=== PATIENT | female | born 1985 | race Caucasian/White ===

== ENCOUNTER 2019-10-12 17:09 | Emergency (ER) | payer BC ==
[~2019-10-12] VITALS: Ht 157.5 cm; Wt 84.0 kg
[2019-10-12 17:24] VITALS: BP 162/77
[2019-10-12] MEDS ORDERED: oxyCODONE/APAP 5/325 1 TAB TABLET PO ONE (17:45)
--- NOTE | 2019-10-12 17:45 | PHYS DOC ---
Past Medical History Past Medical History: Depression, Sciatica Additional Past Surgical Histo: 4 ear surgeries Smoking Status: Current Every Day Smoker Alcohol Use: Occasionally General Adult EDM: Chief Complaint: ANKLE PROBLEM HPI: HPI: Patient is a 34 year old female who presents with states she was sitting on her patio when she went to stand up the sidewalk is a little off balance and she had flip-flops on and lost her balance and fell and rolled her left ankle. She has left dorsal foot and left lateral ankle pain. She states that sharp and shooting. She states is too painful to wiggle her toes. She states she has some tingling in the foot. Patient rates her pain a 10 out of 10. Patient states she is allergic to Vicodin but can take Percocet. Review of Systems: Review of Systems: Musculoskeletal: Denies back pain. + Left foot and ankle joint pain. [] Heart Score: Risk Factors: Risk Factors: DM, Current or recent (<one month) smoker, HTN, HLP, family history of CAD, obesity. Risk Scores: Score 0 - 3: 2.5% MACE over next 6 weeks - Discharge Home Score 4 - 6: 20.3% MACE over next 6 weeks - Admit for Clinical Observation Score 7 - 10: 72.7% MACE over next 6 weeks - Early Invasive Strategies Allergies: Allergies: Allergies Coded Allergies Type Severity Reaction Last Updated Verified acetaminophen Allergy Intermediate 10/12/19 Yes hydrocodone Allergy Intermediate 10/12/19 Yes Physical Exam: PE: Constitutional: Well developed, well nourished, no acute distress, non-toxic appearance. [] HENT: Normocephalic, atraumatic, bilateral external ears normal, oropharynx moist, no oral exudates, nose normal. [] Eyes: PERRLA, EOMI, conjunctiva normal, no discharge. [] Neck: Normal range of motion, no tenderness, supple, no stridor. [] Cardiovascular:Heart rate regular rhythm, no murmur [] Lungs & Thorax: Bilateral breath sounds clear to auscultation [] Abdomen: Bowel sounds normal, soft, no tenderness, no masses, no pulsatile masses. [] Skin: Warm, dry, no erythema, no rash. [] Back: No tenderness, no CVA tenderness. [] Extremities: Left lateral ankle tenderness, no cyanosis, no clubbing, toes and left ankle ROM limited due to pain, 2+ edema. [] Neurologic: Alert and oriented X 3, normal motor function, normal sensory function, no focal deficits noted. [] Psychologic: Affect normal, judgement normal, mood normal. [] Current Patient Data: Vital Signs: Vital Signs Date Time Temp Pulse Resp B/P (MAP) Pulse Ox O2 Delivery O2 Flow Rate FiO2 10/12/19 17:24 99.1 96 16 162/77 (105) 97 Room Air 99.1 EKG: EKG: [] Radiology/Procedures: Radiology/Procedures: [] Impression: [facility] [address] [place] [address] IMAGING REPORT Signed PATIENT: MAE PETERSON ACCOUNT: [id number] : 1985 LOCATION: ER AGE: 34 SEX: F EXAM STATUS: REG ER ORD. PHYSICIAN: LORI VALLADARES APRN REASON: fall. left ankle/foot pain PROCEDURE: ANKLE LEFT 3V Exam: Left ankle 3 views. Left foot 3 views INDICATION: Fall, left ankle/foot pain TECHNIQUE: Frontal, lateral and oblique views of the left ankle and left foot. Comparisons: None FINDINGS: Ankle: Bone mineralization is normal. No acute or healed fractures. Soft tissues are unremarkable. Joint spaces are well-maintained. Left foot: Bone mineralization is normal. No acute or healed fractures. Soft tissues are unremarkable. Joint spaces are well-maintained. IMPRESSION: 1. No acute osseous abnormality of the left foot 2. No acute osseous abnormality of the left ankle Electronically signed by: Davida Guadarrama MD (10/12/2019 6:13 PM) [id number] DICTATED and SIGNED BY: DAVIDA GUADARRAMA MD DATE: 10/12/19 181 Course & Med Decision Making: Course & Med Decision Making Pertinent Labs and Imaging studies reviewed. (See chart for details) 2+ swelling to the dorsal foot. She does not have tenderness to the foot but when she tries to go her toes is very painful. She has tenderness to the lateral ankle with palpation and the ankle has 2+ swelling. There is no laxity in any joints. She has limited range of motion in the ankle due to pain. Skin is pink warm and dry. Cap refill less than 3 seconds. No deformities and no wounds are noted. No tenderness or swelling to the tib-fib. X-ray show no acute findings. Patient is placed in a stirrup and posterior splint. She is to follow-up with orthopedics. Splint assessment: Neurovascularly intact post splint replacement with good f it. Patient's extremity symptoms have stabilized well they have been evaluated in the department and are appropriate for outpatient follow-up. No evidence of compartment syndrome, neurologic injury, vascular injury, open joint, open fracture, tendon laceration, or foreign body. [] Dragon Disclaimer: Dragon Disclaimer: This electronic medical record was generated, in whole or in part, using a voice recognition dictation system. Departure Departure Impression: Primary Impression: Foot pain, left Additional Impression: Ankle pain, left Qualified Codes: M25.572 - Pain in left ankle and joints of left foot Disposition: 01 HOME, SELF-CARE Condition: STABLE Referrals: UNKNOWN PCP NAME (PCP) RAÚL RUIZ MD Patient Instructions: Ankle Sprain, Foot Sprain Additional Instructions: Call make an appointment with orthopedics in the next couple of weeks. Keep the extremity elevated and iced. Take pain medication as prescribed and with food and do not drink alcohol with it. You can also take ibuprofen to help with pain. Scripts Oxycodone/Apap 5-325 (PERCOCET 5-325 MG TABLET ) 1 Each Tablet 1 TAB PO PRN Q6HRS PRN for PAIN, #12 TAB 0 Refills Prov: LORI VALLADARES APRN 10/12/19 Justicifation of Admission Dx: Justifications for Admission: Justification of Admission Dx: N/A LORI VALLADARES APRN Oct 12, 2019 17:45
--- NOTE | 2019-10-12 18:16 | RAD ---
Exam: Left ankle 3 views. Left foot 3 views INDICATION: Fall, left ankle/foot pain TECHNIQUE: Frontal, lateral and oblique views of the left ankle and left foot. Comparisons: None FINDINGS: Ankle: Bone mineralization is normal. No acute or healed fractures. Soft tissues are unremarkable. Joint spaces are well-maintained. Left foot: Bone mineralization is normal. No acute or healed fractures. Soft tissues are unremarkable. Joint spaces are well-maintained. IMPRESSION: 1. No acute osseous abnormality of the left foot 2. No acute osseous abnormality of the left ankle Electronically signed by: Davida Page MD (10/12/2019 6:13 PM) [id number]
[2019-10-12] MEDS ORDERED: OXYC1TAB15 PO (18:31)
== END 2019-10-12 19:36 | disposition home or self-care (01) ==
LOC: ER 17:09
DX: M25.572 Pain in left ankle and joints of left foot (principal); M79.672 Pain in left foot; G89.11 Acute pain due to trauma; F17.200 Nicotine dependence, unspecified, uncomplicated; Z88.5 Allergy status to narcotic agent; Z88.6 Allergy status to analgesic agent; W10.1XXA Fall (on)(from) sidewalk curb, initial encounter; Y93.01 Activity, walking, marching and hiking; Y92.89 Other specified places as the place of occurrence of the external cause; Y99.8 Other external cause status
CPT/HCPCS: 29515; 73610; 73630; 99284